=== PATIENT | male | born 2000 | race Two or more races ===

== ENCOUNTER 2020-07-22 23:21 | Emergency (ER) | payer OTHER ==
[~2020-07-22] VITALS: Ht 175.3 cm; Wt 90.7 kg
[2020-07-23] MEDS ORDERED: NORFLEX100MG PO (01:02)
[2020-07-23] MEDS ORDERED: DICLOFENAC SODI75 MG PO (01:02)
== END 2020-07-23 01:49 | disposition home or self-care (01) ==
LOC: ER 23:21
DX: S13.4XXA Sprain of ligaments of cervical spine, initial encounter (principal); V49.9XXA Car occupant (driver) (passenger) injured in unspecified traffic accident, initial encounter; Y93.89 Activity, other specified; Y92.488 Other paved roadways as the place of occurrence of the external cause; Y99.8 Other external cause status

== ENCOUNTER → 2020-12-25 14:36 | Outpatient (CLI) | payer OTHER ==
[~2020-12-25 14:36] MED LIST: DICLOFENAC SODI75 MG PO; NORFLEX100MG PO
== END | disposition home or self-care (01) ==
LOC: LAB 14:36
PROVIDERS: ATTEND Obstetrics & Gynecology
DX: Z20.818 Contact with and (suspected) exposure to other bacterial communicable diseases (principal); Z20.828 Contact with and (suspected) exposure to other viral communicable diseases